=== PATIENT | female | born 1970 | race Caucasian/White ===

== ENCOUNTER 2018-12-02 22:55 | Emergency (ER) | payer SELFPAY ==
[~2018-12-02] VITALS: Ht 170.2 cm; Wt 61.2 kg
[2018-12-02] MEDS ORDERED: ESCI10TA PO (23:26)
[2018-12-02] MEDS ORDERED: ALPR0.5T7 (23:26)
[2018-12-02] MEDS ORDERED: LACTATED RINGERS 1,000 ML IV ONE (23:35)
[2018-12-02] MEDS ORDERED: MECLIZINE 25 MG (ANTIVERT) TAB PO ONE (23:45)
[2018-12-02] MEDS ORDERED: ONDANSETRON 4 MG/2 ML (SDV) Z0FRAN IVP ONE (23:45)
[2018-12-02 23:58] LABS: BASOPHILS % (AUTO) 0 % (0-10); EOSINOPHILS % (AUTO) 0 % (0-10); HEMATOCRIT 39 % (35-52); HEMOGLOBIN 13.3 G/DL (11.5-16.0); LYMPHOCYTES # (AUTO) 1.8 X 10^3 (1.0-4.0); LYMPHOCYTES % (AUTO) 16 % (12-44); MEAN CORPUSCULAR HEMOGLOBIN 30 PG (25-34); MEAN CORPUSCULAR HGB CONC 34 G/DL (32-36); MEAN CORPUSCULAR VOLUME 87 FL (80-99); MEAN PLATELET VOLUME 10.9 FL (7.4-10.4); MONOCYTES # (AUTO) 0.4 X 10^3 (0.0-1.0); MONOCYTES % (AUTO) 3 % (0-12); NEUTROPHILS % (AUTO) 81 % (42-75); PLATELET COUNT 237 10^3/uL (130-400); RED CELL DISTRIBUTION WIDTH 12.6 % (10.0-14.5); WHITE BLOOD COUNT 11.1 10^3/uL (4.3-11.0)
[2018-12-03 00:01] LABS: BILIRUBIN,URINE NEGATIVE (NEGATIVE); CLARITY,URINE CLEAR; COLOR,URINE YELLOW; GLUCOSE, URINE (UA) NEGATIVE (NEGATIVE); KETONES,URINE 4+ (NEGATIVE); LEUKOCYTE ESTERASE ,URINE NEGATIVE (NEGATIVE); NITRITE,URINE NEGATIVE (NEGATIVE); PH,URINE 5 (5-9); PROTEIN,URINE 1+ (NEGATIVE); UROBILINOGEN,URINE NORMAL (NORMAL)
[2018-12-03 00:09] LABS: BACTERIA,URINE NEGATIVE /HPF
[2018-12-03 00:10] LABS: PROTHROMBIN TIME PATIENT 13.3 SEC (12.2-14.7)
[2018-12-03 00:19] LABS: ALANINE AMINOTRANSFERASE 18 U/L (0-55); ALBUMIN 4.8 GM/DL (3.2-4.5); ALKALINE PHOSPHATASE 69 U/L (40-136); AMYLASE 79 U/L (25-125); BILIRUBIN,TOTAL 0.7 MG/DL (0.1-1.0); BUN/CREATININE RATIO 12; CALCIUM 9.8 MG/DL (8.5-10.1); CARBON DIOXIDE 21 MMOL/L (21-32); CHLORIDE 106 MMOL/L (98-107); CREATINE KINASE 72 U/L (29-168); CREATININE SERUM 0.86 MG/DL (0.60-1.30); GFR ESTIMATED > 60; GLUCOSE 147 MG/DL (70-105); LIPASE 16 U/L (8-78); MAGNESIUM 1.9 MG/DL (1.6-2.4); SODIUM 140 MMOL/L (135-145); TOTAL PROTEIN 7.8 GM/DL (6.4-8.2)
[2018-12-03 00:21] LABS: AMPHETAMINE SCREEN, URINE NEGATIVE (NEGATIVE); BARBITURATE SCREEN URINE NEGATIVE (NEGATIVE); BENZODIAZEPINES SCREEN URINE POSITIVE (NEGATIVE); CANNABINOID SCREEN, URINE POSITIVE (NEGATIVE); COCAINE SCREEN URINE NEGATIVE (NEGATIVE); METHADONE STAT NEGATIVE (NEGATIVE); METHAMPHETAMINE SCREEN URINE S NEGATIVE (NEGATIVE); OPIATE SCREEN URINE NEGATIVE (NEGATIVE); OXYCODONE STAT NEGATIVE (NEGATIVE); PROPOXYPHENE STAT NEGATIVE (NEGATIVE); TRICYCLIC ANTIDEPRESSANTS SCRE NEGATIVE (NEGATIVE)
[2018-12-03 00:38] LABS: CREATINE KINASE MB 0.8 NG/ML (<6.6); TSH (THYROID ANALYZER) 1.01 UIU/ML (0.35-4.94)
[2018-12-03 01:07] LABS: FIBRIN DEGRADATION PRODUCTS 0.63 UG/ML (0.00-0.49)
[2018-12-03] MEDS ORDERED: ONDANSETRON 4 MG/2 ML (SDV) Z0FRAN IVP ONE (01:15)
[2018-12-03] MEDS ORDERED: RX-ONDANSETRON 4 MG ODT (ZOFRAN) PPK #4 PO STA (02:47)
[2018-12-03] MEDS ORDERED: ONDN4T PO (02:49)
--- NOTE | 2018-12-03 02:49 | ED General ---
General Chief Complaint: General Problems/Pain Stated Complaint: DIZZY,NAUSEA,REYNOLDS Nursing Triage Note: nausea, dizziness, lower abdominal cramping today. Nursing Sepsis Screen: No Definite Risk Allergies and Home Medications Allergies Coded Allergies: codeine (Verified Allergy, Unknown, 12/02/18) sulfamethoxazole (Verified Allergy, Unknown, 12/02/18) trimethoprim (Verified Allergy, Unknown, 12/02/18) Past Rrwoudh-Jijsbq-Lebavf Hx Patient Social History Alcohol Use: Rarely Uses Recreational Drug Use: Yes Drug of Choice: cannibus Smoking Status: Never a Smoker 2nd Hand Smoke Exposure: No Recent Foreign Travel: No Contact w/Someone Who Travel: No Recent Infectious Disease Expo: No Recent Hopitalizations: No Immunizations Up To Date Tetanus Booster (TDap): Unknown Seasonal Allergies Seasonal Allergies: No Past Medical History Surgeries: Yes Tonsillectomy Respiratory: No Cardiac: No Neurological: No Genitourinary: No Gastrointestinal: No Musculoskeletal: No Endocrine: No HEENT: No Cancer: No Psychosocial: Yes Anxiety, Depression Integumentary: No Blood Disorders: No Adverse Reaction/Blood Tranf: No Physical Exam Vital Signs Vital Signs - First Documented 12/02/18 23:18 Temp 97.4 Pulse 91 Resp 18 B/P (MAP) 129/81 (97) Pulse Ox 100 O2 Delivery Room Air Capillary Refill : Less Than 3 Seconds Height, Weight, BMI Height: 5'7.00" Weight: 135lbs. oz. [id number]; BMI Method:Stated Progress/Results/Core Measures Suspected Sepsis Recent Fever Within 48 Hours: No Infection Criteria Present: None New/Unexplained Altered Menta: No Sepsis Screen: No Definite Risk SIRS Temperature:97.4 Pulse: 91 Respiratory Rate: 18 Laboratory Tests 12/02/18 23:43: White Blood Count 11.1H Blood Pressure 129 /81 Mean: 97 Laboratory Tests 12/02/18 23:43: Creatinine 0.86, INR Comment 1.0, Platelet Count 237, Total Bilirubin 0.7 Results/Orders Lab Results Laboratory Tests Test 12/02/18 23:25 12/02/18 23:43 Range/Units Urine Color YELLOW Urine Clarity CLEAR Urine pH 5 5-9 Urine Specific [place] 1.020 1.016-1.022 Urine Protein 1+ H NEGATIVE Urine Glucose (UA) NEGATIVE NEGATIVE Urine Ketones 4+ H NEGATIVE Urine Nitrite NEGATIVE NEGATIVE Urine Bilirubin NEGATIVE NEGATIVE Urine Urobilinogen NORMAL NORMAL MG/DL Urine Leukocyte Esterase NEGATIVE NEGATIVE Urine RBC (Auto) 3+ H NEGATIVE Urine RBC 2-5 H /HPF Urine WBC NONE /HPF Urine Squamous Epithelial Cells 2-5 /HPF Urine Crystals NONE /LPF Urine Bacteria NEGATIVE /HPF Urine Casts NONE /LPF Urine Mucus LARGE H /LPF Urine Culture Indicated NO Urine Opiates Screen NEGATIVE NEGATIVE Urine Oxycodone Screen NEGATIVE NEGATIVE Urine Methadone Screen NEGATIVE NEGATIVE Urine Propoxyphene Screen NEGATIVE NEGATIVE Urine Barbiturates Screen NEGATIVE NEGATIVE Ur Tricyclic Antidepressants Screen NEGATIVE NEGATIVE Urine Phencyclidine Screen NEGATIVE NEGATIVE Urine Amphetamines Screen NEGATIVE NEGATIVE Urine Methamphetamines Screen NEGATIVE NEGATIVE Urine Benzodiazepines Screen POSITIVE H NEGATIVE Urine Cocaine Screen NEGATIVE NEGATIVE Urine Cannabinoids Screen POSITIVE H NEGATIVE White Blood Count 11.1 H 4.3-11.0 10^3/uL Red Blood Count 4.46 4.35-5.85 10^6/uL Hemoglobin 13.3 11.5-16.0 G/DL Hematocrit 39 35-52 % Mean Corpuscular Volume 87 80-99 FL Mean Corpuscular Hemoglobin 30 25-34 PG Mean Corpuscular Hemoglobin Concent 34 32-36 G/DL Red Cell Distribution Width 12.6 10.0-14.5 % Platelet Count 237 130-400 10^3/uL Mean Platelet Volume 10.9 H 7.4-10.4 FL Neutrophils (%) (Auto) 81 H 42-75 % Lymphocytes (%) (Auto) 16 12-44 % Monocytes (%) (Auto) 3 0-12 % Eosinophils (%) (Auto) 0 0-10 % Basophils (%) (Auto) 0 0-10 % Neutrophils # (Auto) 9.0 H 1.8-7.8 X 10^3 Lymphocytes # (Auto) 1.8 1.0-4.0 X 10^3 Monocytes # (Auto) 0.4 0.0-1.0 X 10^3 Eosinophils # (Auto) 0.0 0.0-0.3 10^3/uL Basophils # (Auto) 0.0 0.0-0.1 10^3/uL Prothrombin Time 13.3 12.2-14.7 SEC INR Comment 1.0 0.8-1.4 Activated Partial Thromboplast Time 27 24-35 SEC D-Dimer 0.63 H 0.00-0.49 UG/ML Sodium Level 140 135-145 MMOL/L Potassium Level 4.0 3.6-5.0 MMOL/L Chloride Level 106 98-107 MMOL/L Carbon Dioxide Level 21 21-32 MMOL/L Anion Gap 13 5-14 MMOL/L Blood Urea Nitrogen 10 7-18 MG/DL Creatinine 0.86 0.60-1.30 MG/DL Estimat Glomerular Filtration Rate > 60 BUN/Creatinine Ratio 12 Glucose Level 147 H 70-105 MG/DL Calcium Level 9.8 8.5-10.1 MG/DL Corrected Calcium 8.5-10.1 MG/DL Magnesium Level 1.9 1.6-2.4 MG/DL Total Bilirubin 0.7 0.1-1.0 MG/DL Aspartate Amino Transf (AST/SGOT) 19 5-34 U/L Alanine Aminotransferase (ALT/SGPT) 18 0-55 U/L Alkaline Phosphatase 69 40-136 U/L Total Creatine Kinase 72 29-168 U/L Creatine Kinase MB 0.8 <6.6 NG/ML Troponin I < 0.028 <0.028 NG/ML B-Type Natriuretic Peptide 21.7 <100.0 PG/ML Total Protein 7.8 6.4-8.2 GM/DL Albumin 4.8 H 3.2-4.5 GM/DL Amylase Level 79 25-125 U/L Lipase 16 8-78 U/L TSH [place] Testing 1.01 0.35-4.94 UIU/ML Serum Alcohol < 10 <10 MG/DL My Orders Orders - JOANN SUN DO Ed Iv/Invasive Line Start (12/02/18 23:35) Urine Bedside (12/02/18 23:35) Ekg Tracing (12/02/18 23:35) Monitor-Rhythm Ecg Trace Only (12/02/18 23:35) Alcohol (12/02/18 23:35) Amylase (12/02/18 23:35) BNP (12/02/18 23:35) Cbc With Automated Diff (12/02/18 23:35) Comprehensive Metabolic Panel (12/02/18 23:35) Creatine Kinase (12/02/18 23:35) Creatine Kinase Mb (12/02/18 23:35) Drug Screen Stat (Urine) (12/02/18 23:35) Lipase (12/02/18 23:35) Magnesium (12/02/18 23:35) Protime With Inr (12/02/18 23:35) Partial Thromboplastin Time (12/02/18 23:35) Thyroid Analyzer (12/02/18 23:35) Ua Culture If Indicated (12/02/18 23:35) Troponin I (12/02/18 23:35) Ed Iv/Invasive Line Start (12/02/18 23:35) Lactated Ringers (Lr 1000 Ml Iv Solution (12/02/18 23:35) Ondansetron Injection (Zofran Injectio (12/02/18 23:45) Meclizine Tablet (Antivert Tablet) (12/02/18 23:45) Chest 1 View, Ap/Pa Only (12/03/18 00:05) Fibrin Degradation Products (12/02/18 23:43) Ct Gwen Chest/Noang Abd-Pelv W (12/03/18 01:12) Ondansetron Injection (Zofran Injectio (12/03/18 01:15) Rx-Ondansetron Po (Rx-Zofran Po) (12/03/18 02:47) Medications Given in ED Current Medications Medications Dose Ordered Sig/Traci Route Start Time Stop Time Status Last Admin Dose Admin Lactated Ringer's 1,000 ml @ 0 mls/hr Q0M ONCE IV 12/02/18 23:35 12/02/18 23:38 DC 12/02/18 23:43 0 MLS/HR Meclizine HCl 50 mg ONCE ONCE PO 12/02/18 23:45 12/02/18 23:46 DC 12/02/18 23:44 50 MG Ondansetron HCl 4 mg ONCE ONCE IVP 12/02/18 23:45 12/02/18 23:46 DC 12/02/18 23:44 4 MG Ondansetron HCl 4 mg ONCE ONCE IVP 12/03/18 01:15 12/03/18 01:16 DC 12/03/18 01:21 4 MG Vital Signs/I&O 12/02/18 23:18 Temp 97.4 Pulse 91 Resp 18 B/P (MAP) 129/81 (97) Pulse Ox 100 O2 Delivery Room Air Capillary Refill : Less Than 3 Seconds Blood Pressure Mean: 97 Departure Impression Primary Impression: Anxiety Additional Impression: Palpitations with regular cardiac rhythm Disposition: HOME, SELF-CARE Condition: Stable Departure-Patient Inst. Referrals: NO,LOCAL PHYSICIAN (PCP/Family) Primary Care Physician Patient Instructions: Anxiety, Adult (DC), Palpitations (DC) Add. Discharge Instructions: HOME, REST TAKE YOUR XANAX NEEDED FOR ANXIETY RETURN TO ER IF SYMPTOMS WORSEN All discharge instructions reviewed with patient and/or family. Voiced understanding. Scripts Ondansetron HCl (Zofran) 4 Mg Tab 4 MG PO Q4H for Nausea/Vomiting, #10 TAB Prov: JOANN SUN DO 12/03/18 JOANN SUN DO Dec 03, 2018 02:49
[2018-12-03 02:50] VITALS: BP 118/73
--- NOTE | 2018-12-03 05:54 | Diagnostic Imaging Report ---
INDICATION: Nausea and dizziness. COMPARISON: None FINDINGS: Single frontal view of the chest demonstrates normal heart size and pulmonary vascularity. The lungs are well aerated and clear. No large pleural effusion or pneumothorax is seen. The visualized osseous structures show no acute abnormalities. IMPRESSION: 1. No acute cardiopulmonary process. Dictated by: Dictated on workstation # [id number]
--- NOTE | 2018-12-03 07:23 | Diagnostic Imaging Report ---
Indication: Nausea There are no prior CT studies available for comparison. The plain film examination of the chest performed prior to the study failed to show any sign of an acute abnormality. The images through the thorax show the heart size is within normal limits. The aorta is not abnormally dilated and there is no defect within the pulmonary arteries to indicate a pulmonary embolus. The lungs are generally clear. There is no sign of failure, pneumonia or pleural effusion. There is no mediastinal or hilar adenopathy. The thyroid gland is generally unremarkable. There is no obvious breast mass. Images through the abdomen and pelvis show there is a 1.5 cm cyst on the posterior aspect of the right lobe of the liver. The liver is of lower density than usually seen and this appearance does suggest fatty metamorphosis. The spleen, pancreas, adrenals, gallbladder, kidneys, aorta and inferior vena cava show no sign of an acute abnormality. The stomach is partially filled with fluid and consequently difficult to assess. The appendix was visualized and is not abnormally thickened. There is no pelvic mass or free fluid collection noted. The uterus is prominent but not enlarged. The urinary bladder is grossly unremarkable. There is diverticulosis of the sigmoid and descending colon but there is no sign of acute diverticulitis. The bone windows show no evidence for fracture or for destructive lesion. Impression: 1. There is no acute adenopathy of the chest, abdomen or pelvis. In particular, there is no sign of a pulmonary embolus or an aortic dissection. 2. There is a benign-appearing cyst within the right lower liver. 3. There is diverticulosis of sigmoid and descending colon without evidence for an acute diverticulitis. Dictated by: Dictated on workstation # [id number]
== END 2018-12-03 02:54 | disposition home or self-care (01) ==
LOC: ER 22:56
DX: F41.9 Anxiety disorder, unspecified (principal); R00.2 Palpitations; F32.9 Major depressive disorder, single episode, unspecified; Z88.5 Allergy status to narcotic agent; Z88.2 Allergy status to sulfonamides; Z88.1 Allergy status to other antibiotic agents; Z90.89 Acquired absence of other organs
CPT/HCPCS: 36415; 71045; 71275; 74177; 80053; 80306; 80320; 81000; 82150; 82550; 82553; 83690; 83735; 83880; 84443; 84484; 84703; 85025; 85379; 85610; 85730; 93005; 93041; 96361; 96374; 96376